=== PATIENT | female | born 2000 | race Two or more races ===

== ENCOUNTER 2023-08-02 14:32 | Emergency (ER) | payer OTHER ==
--- NOTE | 2023-08-02 14:59 | ER ---
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 Denies fever. Coronavirus screen: Vaccine status: Patient reports receiving the 2nd dose of the covid vaccine. Ebola Screen: No symptoms or risks identified at this time. Initial Sepsis Screen: Does the patient meet any 2 criteria? No. Patient's initial sepsis screen is negative. Does the patient have a suspected source of infection? No. Patient's initial sepsis screen is negative. Risk Assessment: Do you want to hurt yourself or someone else? Patient reports no desire to harm self or others. 14:40 Method Of Arrival: Ambulatory 1 14:40 Acuity: FRANCISCO 4 ll1 14:46 Onset of symptoms was August 02, 2023. ph Triage Assessment: 14:44 General: Appears in no apparent distress. comfortable, well groomed, Behavior is calm, ph cooperative, appropriate for age, Denies fever. Pain: Denies pain. EENT: Reports decreased hearing in right ear. Neuro: Level of Consciousness is awake, alert, obeys commands, Oriented to person, place, time, situation. Cardiovascular: Capillary refill < 3 seconds in bilateral Patient's skin is warm and dry. Respiratory: Airway is patent Respiratory effort is even, unlabored. 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 - Social history:: Smoking status: Patient denies any tobacco usage or history of. Screenin:45 [facility] ED Fall Risk Assessment (Adult) History of falling in the last 3 months, ph including since admission No falls in past 3 months (0 pts) Score/Fall Risk Level 0 - 2 = Low Risk Oriented to surroundings, Maintained a safe environment, Hourly rounding (assess needs \T\ fall precautionary measures) done, Used ambulatory aids as needed (educated on \T\ assisted with). Abuse screen: Denies threats or abuse. Denies injuries from another. Nutritional screening: No deficits noted. Tuberculosis screening: No symptoms or risk factors identified. Vital Signs: 14:40 BP 104 / 64; Pulse 55; Resp 18; Temp 98.2; Pulse Ox 100% on R/A; Weight 60 kg; Height 5 ll1 ft. 4 in. ; 14:40 Body Mass Index 22.58 (60.00 kg, 163 cm) ll1 ED Course: 14:35 Patient arrived in ED. mr 14:42 Triage completed. ll1 14:44 Alberta Vasquez RN is Primary Nurse. ph 14:45 [facility]C [facility] snw 14:45 Dolores Francis MD is Attending Physician. snw 14:45 Arm band placed on Patient placed in an exam room. ph 14:46 Patient has correct armband on for positive identification. Bed in low position. Call ph light in reach. Side rails up X 1. Door closed. Noise minimized. 15:10 No provider procedures requiring assistance completed. Patient did not have IV access ph during this emergency room visit. Administered Medications: No medications were administered Medication: 14:46 VIS not applicable for this client. ph Outcome: 14:58 Discharge ordered by . snw 15:10 Discharged to home ambulatory, ph 15:10 Condition: good 15:10 Discharge instructions given to patient, Instructed on discharge instructions, follow up and referral plans. Demonstrated understanding of instructions, follow-up care, 15:11 Patient left the ED. ph Signatures: Kaci Hood FNP-C SITE SAFETY COORDINATOR-Edwina Hong, [facility] mr Alberta Vasquez, SHIRLEY RN ph Lissette Ang RN RN ll1
--- NOTE | 2023-08-02 14:59 | EDPHYS ---
Physician Documentation [facility] Name: Audrey Garcia Age: 22 yrs Sex: Female : 2000 Arrival Date: 08/02/2023 Time: 14:32 Bed 11 Private MD: ED Physician Dolores Francis HPI: 08/02 14:58 This 22 yrs old [place] Female presents to ER via Ambulatory with complaints of Ear snw Pain. 14:58 The patient presents with pain, swelling, tenderness, right ear canal. The complaints snw affect the right ear. Onset: The symptoms/episode began/occurred 1 week(s) ago, and improved. Associated signs and symptoms: The patient has no apparent associated signs or symptoms. Severity of symptoms: At their worst the symptoms were moderate. The patient has not experienced similar symptoms in the past. The patient has been recently seen by a physician: with similar presenting complaints, and apparently given a diagnosis of OE, was given a prescription for antibiotics, s/s vastly improved. 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 - Social history:: Smoking status: Patient denies any tobacco usage or history of. ROS: 14:58 Constitutional: Negative for fever, chills, and weight loss, Eyes: Negative for injury, snw pain, redness, and discharge, Neck: Negative for injury, pain, and swelling, Cardiovascular: Negative for chest pain, palpitations, and edema, Respiratory: Negative for shortness of breath, cough, wheezing, and pleuritic chest pain, Abdomen/GI: Negative for abdominal pain, nausea, vomiting, diarrhea, and constipation, Back: Negative for injury and pain, : Negative for injury, bleeding, discharge, and swelling, MS/Extremity: Negative for injury and deformity, Skin: Negative for injury, rash, and discoloration, Neuro: Negative for headache, weakness, numbness, tingling, and seizure, Psych: Negative for depression, anxiety, suicide ideation, homicidal ideation, and hallucinations, 14:58 ENT: Positive for ear pain, Exam: 15:00 Constitutional: This is a well developed, well nourished patient who is awake, alert, snw and in no acute distress. Head/Face: Normocephalic, atraumatic. Eyes: Pupils equal round and reactive to light, extra-ocular motions intact. Lids and lashes normal. Conjunctiva and sclera are non-icteric and not injected. Cornea within normal limits. Periorbital areas with no swelling, redness, or edema. ENT: Nares patent. No nasal discharge, no septal abnormalities noted. Tympanic membranes are normal and external auditory canals are clear. Oropharynx with no redness, swelling, or masses, exudates, or evidence of obstruction, uvula midline. Mucous membranes moist. very minimal erythema to right ear canal, negative tug test Neck: Trachea midline, no thyromegaly or masses palpated, and no cervical lymphadenopathy. Supple, full range of motion without nuchal rigidity, or vertebral point tenderness. No Meningismus. Chest/axilla: Normal chest wall appearance and motion. Nontender with no deformity. No lesions are appreciated. Cardiovascular: Regular rate and rhythm with a normal S1 and S2. No gallops, murmurs, or rubs. Normal PMI, no JVD. No pulse deficits. Respiratory: Lungs have equal breath sounds bilaterally, clear to auscultation and percussion. No rales, rhonchi or wheezes noted. No increased work of breathing, no retractions or nasal flaring. Abdomen/GI: Soft, non-tender, with normal bowel sounds. No distension or tympany. No guarding or rebound. No evidence of tenderness throughout. Back: No spinal tenderness. No costovertebral tenderness. Full range of motion. Skin: Warm, dry with normal turgor. Normal color with no rashes, no lesions, and no evidence of cellulitis. MS/ Extremity: Pulses equal, no cyanosis. Neurovascular intact. Full, normal range of motion. Neuro: Awake and alert, GCS 15, oriented to person, place, time, and situation. Cranial nerves II-XII grossly intact. Motor strength 5/5 in all extremities. Sensory grossly intact. Cerebellar exam normal. Normal gait. Psych: Awake, alert, with orientation to person, place and time. Behavior, mood, and affect are within normal limits. Vital Signs: 14:40 BP 104 / 64; Pulse 55; Resp 18; Temp 98.2; Pulse Ox 100% on R/A; Weight 60 kg; Height 5 ll1 ft. 4 in. ; 14:40 Body Mass Index 22.58 (60.00 kg, 163 cm) ll1 MDM: 14:45 Patient medically screened. snw 14:55 Differential diagnosis: otitis externa, improved. Data reviewed: vital signs, nurses snw notes. External Records Reviewed: vessel documents. Counseling: I had a detailed discussion with the patient and/or guardian regarding the historical points, exam findings, and any diagnostic results supporting the discharge/admit diagnosis, the need for outpatient follow up, for definitive care, to return to the emergency department if symptoms worsen or persist or if there are any questions or concerns that arise at home. Special discussion: Based on the history and exam findings, there is no indication for further emergent testing or inpatient evaluation. I discussed with the patient/guardian the need to see the primary care provider for further evaluation of the symptoms. Administered Medications: No medications were administered Disposition Summary: 08/02/23 14:58 Discharge Ordered Notes: Location: Home snw Condition: Stable snw Diagnosis - Unspecified otitis externa, right ear - resolving snw Followup: snw - With: Emergency Department - When: As needed - Reason: Worsening of condition Followup: snw - With: Private Physician - When: 10 - 14 days - Reason: Recheck today's complaints, Continuance of care, Re-evaluation by your physician Discharge Instructions: - Discharge Summary Sheet snw - Otitis Externa snw Forms: - Medication Reconciliation Form snw - Thank You Letter snw - Antibiotic Education snw - Prescription Opioid Use snw - Patient Portal Instructions snw - Leadership Thank You Letter snw Signatures: Kaci Hood FNP-C NURSING EXECUTIVE-Csnw Lissette Ang, RN RN ll1
[2023-08-02 16:38] VITALS: BP 104/64; TEMP 98.2; O2SAT 100
== END 2023-08-02 15:11 | disposition home or self-care (01) ==
LOC: ER 14:32
DX: H60.91 Unspecified otitis externa, right ear (principal)